=== PATIENT | female | born 1985 | race African-American/Black ===

== ENCOUNTER 2016-11-24 13:12 | Emergency (ER) | payer BC, OTHER ==
[~2016-11-24] VITALS: Ht 162.6 cm; Wt 80.0 kg
[~2016-11-24 13:12] MED LIST: ALBU8I INH; BENZ100 PO; ZITH250T PO
[2016-11-24 13:17] VITALS: BP 115/63; PULSE 80; RESP 16; TEMP 98.6; O2SAT 99
--- NOTE | 2016-11-24 13:29 | PD ---
Physical Exam Date Seen by Provider: Nov 24, 2016 Time Seen by Provider: 13:28 Narrative 31 yo female here for evaluation of right hand numbness and tingling. Woke up like this. No fall or injury. has right eye watering with tingling. This is better. No history of this in the past. no other medical issues. Vitals are stable in triage. Awaiting bed placement. Data Data Last Documented VS Vital Signs Date Time Temp Pulse Resp B/P (MAP) Pulse Ox O2 Delivery O2 Flow Rate FiO2 11/24/16 13:17 98.6 80 16 115/63 (80) 99 Orders Orders Complete Blood Count With Diff (11/24/16 13:27) Basic Metabolic Panel (Bmp) (11/24/16 13:27) MDM Medical Record Reviewed: Yes Supervised Visit with STEPHON: Anthony Luz Nov 24, 2016 13:29
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
[2016-11-24 14:35] VITALS: BP 124/65; PULSE 82; RESP 18; O2SAT 100
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
== END 2016-11-24 15:19 | disposition home or self-care (01) ==
LOC: NEPC 13:12
DX: R20.0 Anesthesia of skin (principal); R20.2 Paresthesia of skin; Z88.8 Allergy status to other drugs, medicaments and biological substances
CPT/HCPCS: 99283